=== PATIENT | male | born 1985 | race Caucasian/White ===

== ENCOUNTER 2018-07-24 16:17 | Emergency (ER) | payer MEDICAID ==
[2018-07-24] MEDS ORDERED: DIAZEPAM 5 MG/ML 1 ML SYR ONE (16:43)
[2018-07-24 16:51] VITALS: BP 115/76
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
--- NOTE | 2018-07-25 18:59 | CPEKG ---
Test Reason : OPEN Blood Pressure : / mmHG Vent. Rate : 062 BPM Atrial Rate : 060 BPM P-R Int : 164 ms QRS Dur : 104 ms QT Int : 426 ms P-R-T Axes : 052 067 052 degrees QTc Int : 433 ms Sinus rhythm Confirmed by Eric Landeros ([id number]) on 07/25/2018 6:58:28 PM Referred By: Confirmed By:Eric Landeros
== END 2018-07-24 17:20 ==
DX: T75.4XXA Electrocution, initial encounter (principal); F31.9 Bipolar disorder, unspecified
CPT/HCPCS: J3360